=== PATIENT | male | born 1935 | race American Indian/Alaskan Native ===

== ENCOUNTER 2019-06-06 13:39 | Day surgery (SDC) | payer MEDICARE, OTHER ==
[2019-06-01 14:59] LABS: BASOPHILS % (AUTO) 0.3 % (0-1); EOSINOPHILS # (AUTO) 0.3 X10'3 (0-0.9); EOSINOPHILS % (AUTO) 3.6 % (0-6); HEMATOCRIT 41.7 % (42.0-52.0); HEMOGLOBIN 13.9 g/dl (14.0-17.9); LYMPHOCYTES # (AUTO) 2.1 X10'3 (1.1-4.8); MEAN CORPUSCULAR HEMOGLOBIN 27.5 PG (27.0-31.0); MEAN CORPUSCULAR HGB CONC 33.3 g/dL (33.0-36.5); MEAN CORPUSCULAR VOLUME 82.6 FL (78-98); MEAN PLATELET VOLUME 8.1 FL (7.4-10.4); MONOCYTES # (AUTO) 0.7 X10'3 (0-0.9); MONOCYTES % (AUTO) 8.8 % (2-12); NEUTROPHILS # (AUTO) 4.4 X10'3 (1.8-7.7); NEUTROPHILS % (AUTO) 59.3 % (42-75); PLATELET COUNT 335 X10'3 (140-440); RED BLOOD COUNT 5.05 X10'6 (4.70-6.10); RED CELL DISTRIBUTION WIDTH 15.1 % (11.5-14.5); WHITE BLOOD COUNT 7.5 X10'3 (4.5-11.0)
[2019-06-01 15:05] LABS: ALBUMIN 3.1 G/DL (3.4-5.0); ANION GAP 8 (8-16); BLOOD UREA NITROGEN 22 MG/DL (7-18); BUN/CREATININE RATIO 17.2 (5.4-32.0); CALCIUM 8.4 MG/DL (8.5-10.1); CHLORIDE 110 MMOL/L (99-107); CREATININE 1.28 MG/DL (0.60-1.10); GLUCOSE 104 MG/DL (70-104); POTASSIUM 3.7 MMOL/L (3.5-5.1); SODIUM 145 MMOL/L (135-145); TOTAL CARBON DIOXIDE 27.2 MMOL/L (24-32); eGFR 54 ML/MIN
[2019-06-01 15:08] LABS: PARTIAL THROMBOPLASTIN TIME 31 SECONDS (22-32)
[~2019-06-06] VITALS: Ht 170.2 cm; Wt 84.9 kg
[2019-06-06] VITALS (11 sets, daily range): BP systolic 99–113; BP diastolic 56–73
[2019-06-06] MEDS ORDERED: normal saline 1000ml 1,000 ML IV SCH (14:05)
[2019-06-06] MEDS ORDERED: fentaNYL/PF 50MCG/1 ML 2ML syringe IV ONE (14:05)
[2019-06-06] MEDS ORDERED: MIDAZolam 5mg/ml 2ml vial IV ONE (14:05)
[2019-06-06] MEDS ORDERED: CHOL10002 PO (14:32)
[2019-06-06] MEDS ORDERED: SOTA80TA PO (14:32)
[2019-06-06] MEDS ORDERED: DOXA8TAB79 PO (14:32)
[2019-06-06] MEDS ORDERED: FINA5TAB11 PO (14:32)
[2019-06-06] MEDS ORDERED: APIX5TAB3 PO (14:32)
== END 2019-06-06 18:40 | disposition home or self-care (01) ==
LOC: SSTAY O 13:39
PROVIDERS: ATTEND Internal Medicine Interventional Cardiology
DX: I48.91 Unspecified atrial fibrillation (principal); I10 Essential (primary) hypertension; N40.0 Benign prostatic hyperplasia without lower urinary tract symptoms; Z87.19 Personal history of other diseases of the digestive system; Z79.899 Other long term (current) drug therapy
CPT/HCPCS: 36415; 80048; 85025; 85610; 85730; 92960; 93005; 94760; J2250; J3010; J7030